=== PATIENT | female | born 1965 | race Caucasian/White ===

== ENCOUNTER 2016-11-17 17:01 | Emergency (ER) | payer BC, OTHER ==
[2016-11-17] MEDS ORDERED: SODIUM CHLORIDE 0.9% 1,000 ML IV ONE ×2 (17:38→17:44)
[2016-11-17] MEDS ORDERED: ONDANSETRON 4 MG/2 ML VIAL IVP STA (17:38)
[2016-11-17] MEDS ORDERED: LOPERAMIDE 2 MG CAPSULE PO STA (17:39)
[2016-11-17] MEDS ORDERED: LOPERAMIDE 2 MG CAPSULE PO ONE (17:44)
[2016-11-17] MEDS ORDERED: ONDANSETRON 4 MG/2 ML VIAL ONE (17:44)
--- NOTE | 2016-11-17 17:46 | ED Physician Documentation ---
PD HPI NVD - Stated complaint Stated Complaint: VOMITTING XS 5 DAYS - Chief complaint Chief Complaint: Abd Pain - History obtained from History obtained from: Patient - History of Present Illness Timing - onset: Other (50-year-old woman on a number of medications for weight loss, also a history of it deflated lap band. The last 5 days she's had vomiting and diarrhea and stomach cramps. It started on Monday and she had for couple days and then got better but then got worse again. There is no associated fever, recent travel, sick contact.) Review of Systems Constitutional: denies: Fever, Chills Nose: denies: Rhinorrhea / runny nose, Congestion Cardiac: denies: Chest pain / pressure, Palpitations Respiratory: denies: Dyspnea, Cough GI: reports: Nausea, Vomiting, Diarrhea. denies: Abdominal Pain, Abdominal Swelling, Constipation PD PAST MEDICAL HISTORY - Present Medications Home Medications: Ambulatory Orders Medication Instructions Recorded Confirmed Acarbose 1 tab PO DAILY 11/17/16 11/17/16 Levothyroxine [Synthroid] 1 tab PO DAILY 11/17/16 11/17/16 Liraglutide [Victoza 2-Dav] 1 applic SQ .FREQ 11/17/16 11/17/16 Lisinopril 1 tab PO DAILY 11/17/16 11/17/16 Miglitol 100 mg PO BID 11/17/16 11/17/16 Naltrexone HCl 1 tab PO DAILY 11/17/16 11/17/16 Ondansetron HCl [Zofran] 4 mg PO Q6H PRN #10 tablet 11/17/16 Promethazine [Phenergan] 25 - 50 mg PO Q6H PRN #15 tab 11/17/16 Sodium Bicarbonate 1 tab PO DAILY 11/17/16 11/17/16 Zonisamide 1 tab PO .FREQ 11/17/16 11/17/16 - Allergies Allergies/Adverse Reactions: Allergies Allergy/AdvReac Type Severity Reaction Status Date / Time No Known Drug Allergies Allergy Verified 11/17/16 17:09 PD ED PE NORMAL - Vitals Vital signs reviewed: Yes - General General: Alert and oriented X 3, No acute distress - HEENT HEENT: PERRL, EOMI, Moist mucous membranes, Pharynx benign - Cardiac Cardiac: RRR, No murmur - Respiratory Respiratory: No respiratory distress, Clear bilaterally - Abdomen Abdomen: Normal bowel sounds, Soft, Non tender - Extremities Extremities: No deformity, No tenderness to palpate, No edema, No calf tenderness / cord - Neuro Neuro: Alert and oriented X 3, Normal speech - Psych Psych: Normal mood, Normal affect Results - Vitals Vitals: Vital Signs - 24 hr 11/17/16 11/17/16 11/17/16 17:03 18:53 18:54 Temperature 36.7 C 37.9 C H Heart Rate 97 88 Respiratory 17 18 Rate Blood Pressure 170/98 H 192/78 H O2 Saturation 100 100 Oxygen O2 Source Room air - Labs Labs: Laboratory Tests 11/17/16 11/17/16 11/17/16 17:38 17:38 18:50 WBC 15.0 H RBC 4.51 Hgb 14.6 Hct 41.9 MCV 92.9 MCH 32.4 H MCHC 34.9 RDW 12.9 Plt Count 251 MPV 8.9 Neut # 12.4 H Lymph # 1.4 L [place] # 1.1 H Eos # 0.0 Baso # 0.0 Absolute Nucleated RBC 0.00 Nucleated RBCs 0.0 Sodium 135 Potassium 3.2 L Chloride 102 Carbon Dioxide 23 Anion Gap 10.0 BUN 23 H Creatinine 1.3 H Estimated GFR (MDRD) 43 L Glucose 146 H Calcium 8.8 Total Bilirubin 0.9 AST 24 ALT 33 Alkaline Phosphatase 52 Total Protein 7.2 Albumin 4.4 Globulin 2.8 Albumin/Globulin Ratio 1.6 Lipase 26 Urine Color YELLOW Urine Clarity CLEAR Urine pH 6.5 Ur Specific [place] 1.020 Urine Protein TRACE Urine Glucose (UA) NEGATIVE Urine Ketones 40 H Urine Occult Blood SMALL H Urine Nitrite NEGATIVE Urine Bilirubin NEGATIVE Urine Urobilinogen 0.2 (NORMAL) Ur Leukocyte Esterase NEGATIVE Urine RBC 0-5 Urine WBC 4-5 Ur Squamous Epith Cells MANY Squamous H Urine Bacteria None Seen Ur Microscopic Review INDICATED Urine Culture Comments NOT INDICATED - Rads (name of study) CT A/P Radiology: EMP read contemporaneously (1 mm left UVJ stone, lab band, fatty liver, diverticulosis) PD MEDICAL DECISION MAKING - ED course ED course: 50-year-old woman presents with what sounds like a GI illness but fairly long- standing. Initial workup didn't demonstrate a fair leukocytosis it was sent for CT which surprisingly showed a small left UVJ stone, her urinalysis was without evidence of infection. She declined pain medication and felt much better after antiemetics. Departure - Departure Disposition: 01 Home, Self Care Clinical Impression: Renal colic Vomiting Qualifiers: Vomiting type: unspecified Vomiting Intractability: non-intractable Nausea presence: with nausea Qualified Code(s): R11.2 - Nausea with vomiting, unspecified Condition: Good Record reviewed to determine appropriate education?: Yes Instructions: ED Stone Renal W Colic, ED Nausea Vomiting Prescriptions: Promethazine [Phenergan] 25 - 50 mg PO Q6H PRN #15 tab PRN Reason: Nausea / Vomiting Ondansetron HCl [Zofran] 4 mg PO Q6H PRN #10 tablet PRN Reason: Nausea / Vomiting Comments: Call your doctor to arrange a follow up appointment. Make the next available appointment. In the interim return anytime if worse or if new symptoms develop. Your blood pressure was elevated today on check in to the emergency department. This does not mean that you have hypertension, it is a common phenomenon to check into the emergency department and have elevated blood pressure. I recommend that you see your primary care physician within the week to have it rechecked when you're feeling better. Forms: Activity restrictions
[2016-11-17 17:55] LABS: BASOPHILS % (AUTO) 0.2 %; HCT - HEMATOCRIT 41.9 % (37.0-47.0); HGB - HEMOGLOBIN 14.6 g/dL (12.0-16.0); LYMPHOCYTES # (AUTO) 1.4 10^3/uL (1.5-3.5); LYMPHOCYTES % (AUTO) 9.6 %; MEAN CORPUSCULAR HEMOGLOBIN 32.4 pg (27.0-31.0); MEAN CORPUSCULAR HGB CONC 34.9 g/dL (32.0-36.0); MEAN CORPUSCULAR VOLUME 92.9 fL (81.0-99.0); MEAN PLATELET VOLUME 8.9 fL (7.9-10.8); MONOCYTES # (AUTO) 1.1 10^3/uL (0.0-1.0); MONOCYTES % (AUTO) 7.6 %; NEUTROPHILS # (AUTO) 12.4 10^3/uL (1.5-6.6); NEUTROPHILS % (AUTO) 82.6 %; RED BLOOD COUNT 4.51 10^6/uL (4.20-5.40); RED CELL DISTRIBUTION WIDTH 12.9 % (12.0-15.0)
[2016-11-17 18:06] LABS: ALBUMIN/GLOBULIN RATIO 1.6 (1.0-2.2); BILIRUBIN,TOTAL 0.9 mg/dL (0.2-1.0); CALCIUM 8.8 mg/dL (8.5-10.3); CREATININE 1.3 mg/dL (0.4-1.0); POTASSIUM 3.2 mmol/L (3.5-5.0); TOTAL PROTEIN 7.2 g/dL (6.7-8.2)
[2016-11-17] MEDS ORDERED: PROMETHAZINE INJ 25 MG in SODIUM CHLORIDE 0.9% 50 ML IV STA (18:17)
[2016-11-17] MEDS ORDERED: PROMETHAZINE 25 MG/1 ML VIAL ONE (18:18)
[2016-11-17] MEDS ORDERED: IOPAMIDOL-300 100 ML VIAL IVP ONE (18:43)
[2016-11-17] MEDS ORDERED: METOCLOPRAMIDE 10 MG/2 ML VIAL IVP STA (18:51)
[2016-11-17] MEDS ORDERED: METOCLOPRAMIDE 10 MG/2 ML VIAL ONE (18:55)
[2016-11-17 18:56] LABS: PH,URINE 6.5 PH (5.0-7.5)
[2016-11-17 18:58] LABS: UA w/ MICROSCOPIC CHARGE YES
[2016-11-17 19:01] LABS: BILIRUBIN,URINE NEGATIVE (NEGATIVE)
[2016-11-17 19:04] LABS: UR CULTURE IF IND NOT INDICATED
--- NOTE | 2016-11-17 19:33 | CT Preliminary Report ---
Exam: CT Abdomen/Pelvis W/ IMPRESSION: 1. Mild left hydronephrosis with an obstructing 1 mm left ureteral stone at the ureterovesicular junc tion. Prominent inflammatory fat stranding and free fluid surrounding the left kidney may be secondar y to the ureteral stone although with a history of leukocytosis, renal infection would be part of the differential diagnosis. No discrete abscess seen. 2. Status post gastric lap band. 3. Fatty infiltration of the liver. 4. Colonic diverticulosis with mild distention of the transverse colon with abrupt decompression at t he splenic flexure. No discrete mass is seen and this is probably physiologic in this patient in the supine position although if not recently performed, screening colonoscopy could evaluate this area. [facility] SITE ID: [id number]
--- NOTE | 2016-11-17 19:36 | CT Report ---
EXAM: CT ABDOMEN AND PELVIS EXAM DATE: 11/17/2016 06:50 PM. CLINICAL HISTORY: Abdominal pain and leukocytosis. COMPARISONS: None. TECHNIQUE: Routine helical CT imaging was performed through the abdomen and pelvis. IV contrast: 100 cc Isovue-300. Enteric contrast: No. Reconstructions: Coronal and sagittal. In accordance with CT protocol optimization, one or more of the following dose reduction techniques w ere utilized for this exam: automated exposure control, adjustment of mA and/or KV based on patient s ize, or use of iterative reconstructive technique. FINDINGS: Lung Bases: Unremarkable. Liver: Decreased density of the liver diffusely consistent with fatty infiltration without focal lesi on. Gallbladder/Bile Ducts: Unremarkable. Spleen: Normal. Pancreas: Normal. Adrenal Glands: Normal. Kidneys: Renal enhancement is normal without hydronephrosis. There is a delayed nephrogram on the left with prominent inflammatory fat stranding and trace free fl uid surrounding the left kidney. Note is made of a lateral cyst with some calcification at the margin measuring 1.5 cm. There is mild left hydronephrosis with a 1 mm obstructing stone at the ureterovesi cular junction (3, 88). Peritoneal Cavity/Bowel: The patient is status post gastric lap band. There is upper normal diameter of the transverse colon with abrupt decompression at the level of the splenic flexure. Note is made o f underlying colonic diverticular disease. Pelvic Organs: Uterus is anteverted with the patient status post bilateral Essure. Vasculature: No aneurysms or other significant abnormality. Bones: No significant abnormality. Other: None. IMPRESSION: 1. Mild left hydronephrosis with an obstructing 1 mm left ureteral stone at the ureterovesicular junc tion. Prominent inflammatory fat stranding and free fluid surrounding the left kidney may be secondar y to the ureteral stone although with a history of leukocytosis, renal infection would be part of the differential diagnosis. No discrete abscess seen. 2. Status post gastric lap band. 3. Fatty infiltration of the liver. 4. Colonic diverticulosis with mild distention of the transverse colon with abrupt decompression at t he splenic flexure. No discrete mass is seen and this is probably physiologic in this patient in the supine position although if not recently performed, screening colonoscopy could evaluate this area. [facility] Referring Provider Line: [phone] SITE ID: [id number]
[2016-11-17 19:50] VITALS: BP 141/79
== END 2016-11-17 19:51 | disposition home or self-care (01) ==
LOC: ED 17:01
DX: N13.2 Hydronephrosis with renal and ureteral calculous obstruction (principal); Z98.84 Bariatric surgery status; R11.2 Nausea with vomiting, unspecified; R03.0 Elevated blood-pressure reading, without diagnosis of hypertension
CPT/HCPCS: 36415; 74177; 80053; 81001; 83690; 85025; 96365; 96375; 99284; A9270; Q9967; 81003; 87086

== ENCOUNTER 2017-01-02 11:12 | Outpatient (CLI) | payer OTHER | END 2017-01-02 11:13 | disposition home or self-care (01) | LOC: SC 11:12 | PROVIDERS: ATTEND Nurse Practitioner Family | DX: G47.33 Obstructive sleep apnea (adult) (pediatric) (principal) | CPT/HCPCS: 99212; 99214 ==

== ENCOUNTER 2017-02-11 11:24 | Outpatient (CLI) | payer OTHER ==
--- NOTE | 2017-02-11 15:34 | Ultrasound Report ---
EXAM: ABDOMEN ULTRASOUND LIMITED EXAM DATE: 02/11/2017 12:03 PM. CLINICAL HISTORY: ABDOMINAL WALL HERNIA. COMPARISON: None. TECHNIQUE: Real-time scanning was performed with static images obtained. FINDINGS/IMPRESSIO)N: Targeted sonographic evaluation of the right hemiabdomen (area of reported palpable concern). The abdominal wall appears intact without herniation. No soft tissue mass identified. No solid or cystic masses. Peristalsing bowel is identified. IMPRESSION: No sonographic evidence for abdominal wall hernia. [facility] Referring Provider Line: [phone] SITE ID: [id number]
== END 2017-02-11 11:25 | disposition home or self-care (01) ==
LOC: DI 11:24
PROVIDERS: ATTEND Family Medicine
DX: K43.9 Ventral hernia without obstruction or gangrene (principal)
CPT/HCPCS: 76705

== ENCOUNTER 2017-02-16 15:26 | Outpatient (CLI) | payer OTHER ==
--- NOTE | 2017-02-20 20:13 | Mammography Report ---
DIGITAL BILATERAL SCREENING MAMMOGRAPHY: 02/16/2017 COMPARISON: 01/21/2016, 09/19/2014, 08/13/2009, 08/12/2008. Bilateral digital CC and MLO projections are obtained. FINDINGS: There are scattered fibroglandular densities. There is a small nodular density in the posterior third of the right upper-outer quadrant not definitely present on preceding studies. Suggest additional evaluation by spot compression views and ultrasound as needed. Otherwise no dominant mass, architectural distortion, skin thickening, or significant new finding compared to the prior study. Benign calcifications are seen in both breasts. IMPRESSION: NEGATIVE LEFT BREAST. NEEDS ADDITIONAL EVALUATION RIGHT BREAST. BIRADS CATEGORY: 0, INCOMPLETE EVALUATION. STANDARD QUALIFYING STATEMENTS 1. This examination was reviewed with the aid of Computed-Aided Detection (CAD) . 2. A negative or benign imaging report should not delay biopsy if clinically suspicious findings are present. Consider surgical consultation if warranted. More than 5% of cancers are not identified by imaging. 3. Dense breasts may obscure an underlying neoplasm. JOB #: [id number] EXT JOB #: [id number] JAISON
== END 2017-02-16 15:27 | disposition home or self-care (01) ==
LOC: DI.N 15:26
PROVIDERS: ATTEND Family Medicine
DX: Z12.31 Encounter for screening mammogram for malignant neoplasm of breast (principal); R92.8 Other abnormal and inconclusive findings on diagnostic imaging of breast
CPT/HCPCS: 77067

== ENCOUNTER 2017-03-30 14:00 | Outpatient (CLI) | payer OTHER ==
--- NOTE | 2017-03-31 16:02 | Mammography Report ---
RIGHT BREAST DIGITAL DIAGNOSTIC MAMMOGRAM AND RIGHT BREAST ULTRASOUND: 2016 COMPARISON STUDY: Screening mammogram 02/16/2017. INDICATION: Small mass upper-outer right breast on screening mammogram. MAMMOGRAM TECHNIQUE: Spot compression views of the right upper-outer quadrant are correlated with screening mammogram of 02/16/2017. FINDINGS There are scattered fibroglandular densities. Again seen with spot compression is a small mass of the right upper-outer breast approximately 10:30-position posterior breast, far from the nipple. It appears to contain a small fatty notch, most consistent with an intramammary lymph node. No dominant mass, architectural distortion, or concerning cluster of microcalcifications is seen in other regards. ULTRASOUND Focused sonography of the right upper-outer quadrant, 10:30 o'clock, approaching the axilla shows no evidence of mass or discrete lymph node. No other sonographic abnormalities. IMPRESSION: BIRADS CATEGORY 2 BENIGN FINDINGS. FAVOR AN INTRAMAMMARY LYMPH NODE. RECOMMEND ANNUAL SCREENING MAMMOGRAPHY. JAISON
== END 2017-03-30 14:01 | disposition home or self-care (01) ==
LOC: DI 14:00
PROVIDERS: ATTEND Family Medicine
DX: N63.11 Unspecified lump in the right breast, upper outer quadrant (principal)
CPT/HCPCS: 76642

== ENCOUNTER 2017-12-28 09:56 | Outpatient (CLI) | payer BC | END 2017-12-28 09:57 | disposition home or self-care (01) | LOC: SC 09:56 | PROVIDERS: ATTEND Nurse Practitioner Family | DX: G47.33 Obstructive sleep apnea (adult) (pediatric) (principal) | CPT/HCPCS: 99212; 99213 ==

== ENCOUNTER 2018-06-26 14:36 | Outpatient (CLI) | payer BC ==
[2018-06-26] MEDS ORDERED: IOVERSOL 320 50 ML VIAL ONE (14:54)
[2018-06-26] MEDS ORDERED: IOVERSOL 320 100 ML VIAL IVP ONE ×2 (14:54→16:17)
[2018-06-26 15:08] LABS: CREATININE 0.9 mg/dL (0.4-1.0)
[2018-06-26] MEDS ORDERED: IOVERSOL 320 50 ML VIAL PO ONE (16:17)
--- NOTE | 2018-06-26 16:26 | CT Report ---
Reason: NONINFECTIVE GASTROENTERITIS AND COLITIS. Procedure Date: 06/26/2018 Accession Number: [id number] / [id number] Procedure: CT - Abdomen/Pelvis W/ CPT Code: FULL RESULT: EXAM: CT ABDOMEN AND PELVIS EXAM DATE: 06/26/2018 03:47 PM. CLINICAL HISTORY: Noninfective gastroenteritis and colitis. COMPARISONS: Abdomen/pelvis with contrast 11/17/2016 6:36 PM. TECHNIQUE: Routine helical CT imaging was performed through the abdomen and pelvis. IV contrast: Optiray-320 90 mL. Enteric contrast: No. Reconstructions: Coronal and sagittal. In accordance with CT protocol optimization, one or more of the following dose reduction techniques were utilized for this exam: automated exposure control, adjustment of mA and/or KV based on patient size, or use of iterative reconstructive technique. FINDINGS: Lung Bases: Unremarkable. Liver: Normal. No masses. Gallbladder/Bile Ducts: Unremarkable. Spleen: Normal. Pancreas: Normal. Adrenal Glands: Normal. Kidneys: There is a 1.6 cm left renal calculus which is focally obstructing the single calyx. A smaller 5 mm upper pole calculus is also seen in the left kidney. The remainder of the kidney demonstrates no la hydronephrosis but there is mild periureteral fat stranding and a 5 mm calculus at the left ureterovesicular junction. Right kidney is unremarkable. Peritoneal Cavity/Bowel: In the region of the proximal duodenum is a 3.2 x 1.9 cm fluid and gas filled saccular structure with an appearance most suggestive of duodenal diverticulum. A contained proximal perforation/impending perforation of a possible duodenal ulcer is difficult to exclude in the current clinical scenario though felt significantly less likely. The descending and sigmoid colon are decompressed. No free fluid, free air or adenopathy. No masses or acute inflammatory process. The appendix is not seen. There is no inflammation in the pericecal region. Pelvic Organs: Essure device is in place. The bladder and visualized pelvic organs are within normal limits. Vasculature: No aneurysms or other significant abnormality. Bones: No significant abnormality. Other: None. IMPRESSION: Left UVJ calculus, 5 mm. Decompressed colon which can be seen in the setting of diarrhea/colitis. Question proximal duodenal diverticulum, usually of no clinical significance. A contained proximal perforation/impending perforation of a possible duodenal ulcer is difficult to exclude in the current clinical scenario though felt significantly less likely. No overt ischemic or inflammatory changes of the colon. 1.6 cm calculus of the left kidney as described. [facility] The call report notification system was initiated by Dr. Connor Ramirez at 04:25 PM hrs on 06/26/2018. The above findings of the distal left UVJ stone were discussed with Dr Hubbard by Dr. Connor Ramirez at 04:27 PM hrs on 06/26/2018.
== END 2018-06-26 14:37 | disposition home or self-care (01) ==
LOC: LAB 14:36 → DI 14:37
PROVIDERS: ATTEND Specialist
DX: N20.2 Calculus of kidney with calculus of ureter (principal); K52.9 Noninfective gastroenteritis and colitis, unspecified; N12 Tubulo-interstitial nephritis, not specified as acute or chronic
CPT/HCPCS: 36415; 74177; 82565; Q9967

== ENCOUNTER 2018-12-10 15:12 | Outpatient (CLI) | payer BC | END 2018-12-10 15:13 | disposition home or self-care (01) | LOC: SC 15:12 | PROVIDERS: ATTEND Nurse Practitioner Family | DX: G47.33 Obstructive sleep apnea (adult) (pediatric) (principal) | CPT/HCPCS: 99212; 99214 ==

== ENCOUNTER 2019-01-08 05:07 | Emergency (ER) | payer BC ==
--- NOTE | 2019-01-08 05:14 | ED Physician Documentation ---
PD HPI ABD PAIN - Stated complaint Stated Complaint: ABD PX/BK PX/COLD SWEAT - Chief complaint Chief Complaint: Abd Pain - History obtained from History obtained from: Patient - History of Present Illness Timing - onset: How many days ago (2) Timing - duration: Days (2 days of pain (started Monday evening)) Timing - details: Abrupt onset, Still present, Waxing and waning Quality: Cramping, Aching, Pain Location: Suprapubic Radiation: Left flank, Right flank Improved by: Vomiting. No: Eating Worsened by: Palpation. No: Eating, Moving, Breathing Associated symptoms: Nausea, Vomiting, Loss of appetite. No: Fever, Diarrhea, Constipation, Dysuria, Vaginal bleeding, Vaginal dc Similar symptoms before: Diagnosis (kidney stone this past June.) Recently seen: Not recently seen Review of Systems Constitutional: reports: Myalgias. denies: Fever, Chills Nose: denies: Rhinorrhea / runny nose, Congestion Throat: denies: Sore throat Cardiac: denies: Chest pain / pressure Respiratory: denies: Cough GI: reports: Abdominal Pain, Nausea, Vomiting. denies: Abdominal Swelling, Constipation, Diarrhea Skin: denies: Rash, Lesions Musculoskeletal: reports: Back pain. denies: Neck pain Neurologic: reports: Generalized weakness. denies: Focal weakness, Numbness PD PAST MEDICAL HISTORY - Past Medical History Cardiovascular: Hypertension Respiratory: None Neuro: None : Kidney stones (hadpassed 5 mm one in Jun. CT at the time showed 5 mm and also 16 mm stones in kidneys. ) - Past Surgical History Past Surgical History: No - Present Medications Home Medications: Ambulatory Orders Medication Instructions Recorded Confirmed Acarbose 1 tab PO DAILY 11/17/16 11/17/16 Levothyroxine [Synthroid] 1 tab PO DAILY 11/17/16 11/17/16 Lisinopril 1 tab PO DAILY 11/17/16 11/17/16 Miglitol 100 mg PO BID 11/17/16 11/17/16 Sodium Bicarbonate 1 tab PO DAILY 11/17/16 11/17/16 Zonisamide 1 tab PO .FREQ 11/17/16 11/17/16 Hydrocodone/Acetaminophen [[place] 1 each PO Q6H PRN #15 tablet 01/08/19 5-325 Tablet] Naproxen 375 mg PO BID #20 tablet 01/08/19 Ondansetron Odt [Zofran] 4 mg TL Q6H PRN #10 tablet 01/08/19 - Allergies Allergies/Adverse Reactions: Allergies Allergy/AdvReac Type Severity Reaction Status Date / Time No Known Drug Allergies Allergy Verified 01/08/19 05:13 - Social History Does the pt smoke?: No Smoking Status: Never smoker Does the pt drink ETOH?: Yes Does the pt have substance abuse?: No - POLST Patient has POLST: No PD ED PE NORMAL - Vitals Vital signs reviewed: Yes - General General: Alert and oriented X 3, No acute distress, Well developed/nourished - HEENT HEENT: Pharynx benign - Neck Neck: Supple, no meningeal sign, No adenopathy - Cardiac Cardiac: RRR, No murmur - Respiratory Respiratory: Clear bilaterally - Abdomen Abdomen: Normal bowel sounds, Soft, Non distended, No organomegaly, Other (tender in lower abd suprapubic and left side mainly. Has mild percussion tenderness lower abd midline. No CVA tenderness as well) - Female Female : Deferred - Rectal Rectal: Deferred - Back Back: No CVA TTP - Derm Derm: Normal color, Warm and dry, No rash - Extremities Extremities: No tenderness to palpate, Normal ROM s pain, No edema, No calf tenderness / cord - Neuro Neuro: Alert and oriented X 3, No motor deficit, Normal speech Results - Vitals Vitals: Vital Signs - 24 hr 01/08/19 01/08/19 01/08/19 05:10 05:15 06:13 Temperature 37.1 C Heart Rate 89 93 Respiratory 18 16 Rate Blood Pressure 174/93 H 159/94 H 148/78 H O2 Saturation 100 97 Oxygen O2 Source Room air - Labs Labs: Laboratory Tests 01/08/19 01/08/19 01/08/19 05:30 05:52 05:52 WBC 9.2 RBC 4.03 L Hgb 13.3 Hct 39.6 MCV 98.3 MCH 33.0 H MCHC 33.6 RDW 12.5 Plt Count 229 MPV 10.8 Neut # (Auto) 7.5 H Lymph # (Auto) 1.2 L [place] # (Auto) 0.3 Eos # (Auto) 0.0 Baso # (Auto) 0.1 Absolute Nucleated RBC 0.00 Nucleated RBC % 0.0 Sodium 139 Potassium 3.7 Chloride 108 Carbon Dioxide 21 Anion Gap 10.0 BUN 20 Creatinine 1.0 Estimated GFR (MDRD) 58 L Glucose 132 H Calcium 8.6 Total Bilirubin 0.5 AST 14 ALT 19 Alkaline Phosphatase 72 Total Protein 6.7 Albumin 3.9 Globulin 2.8 Albumin/Globulin Ratio 1.4 Lipase 26 Urine Color YELLOW Urine Clarity SL. CLOUDY Urine pH 6.5 Ur Specific [place] 1.015 Urine Protein TRACE Urine Glucose (UA) NEGATIVE Urine Ketones TRACE Urine Occult Blood NEGATIVE Urine Nitrite NEGATIVE Urine Bilirubin NEGATIVE Urine Urobilinogen 0.2 (NORMAL) Ur Leukocyte Esterase SMALL H Urine RBC None Seen Urine WBC 0-3 Ur Squamous Epith Cells MOD Squamous H Urine Crystals 11-25 Ca Oxalate Urine Bacteria Rare Ur Microscopic Review INDICATED Urine Culture Comments NOT INDICATED - Rads (name of study) KUB CT Radiology: Prelim report reviewed, See rad report (No acute process to explain symptoms) PD MEDICAL DECISION MAKING - ED course Complexity details: re-evaluated patient (Her symptoms are improved but still having pain in the lower abdomen to the back. Will get CT scan to better evaluate.), considered differential (Consider urinary tract such as stones or Bo. Consider enteral process such as viral illness or colitis. She does not have focal tenderness per se that would seem consistent with appendicitis. Diverticulitis could be a possibility. Will get labs and urine test initially. We will give her IV fluids and medications.), d/w patient Departure - Departure Disposition: 01 Home, Self Care Clinical Impression: Lower abdominal pain Nausea and vomiting Qualifiers: Vomiting type: unspecified Vomiting Intractability: non-intractable Qualified Code(s): R11.2 - Nausea with vomiting, unspecified Condition: Stable Record reviewed to determine appropriate education?: Yes Instructions: ED Nausea Vomiting Follow-Up: Ivory Russell MD [Primary Care Provider] - Prescriptions: Hydrocodone/Acetaminophen [[place] 5-325 Tablet] 1 each PO Q6H PRN #15 tablet PRN Reason: Pain Naproxen 375 mg PO BID #20 tablet Ondansetron Odt [Zofran] 4 mg TL Q6H PRN #10 tablet PRN Reason: Nausea / Vomiting Comments: There is no obvious cause of your symptoms on your urine test blood count and blood tests nor the CT scan. I would presume therefore you are having some general intestinal irritation, as well as the stomach, given your nausea vomiting and stomach pains. This commonly can be a viral type illness that lasts for a few days. However this is just a supposition and we can treat the symptoms with nausea medicine and anti-inflammatories and medicine for pain. However if the symptoms persist more than another day or 2 or if you have worsening symptoms or localized pain, high fevers, persistent vomiting, bloody stool, other concerns then certainly recheck with your primary care or back in the ER.
[2019-01-08] MEDS ORDERED: SODIUM CHLORIDE 0.9% 1,000 ML IV ONE (05:22)
[2019-01-08] MEDS ORDERED: ONDANSETRON 4 MG/2 ML VIAL IVP STA (05:23)
[2019-01-08] MEDS ORDERED: MORPHINE 10 MG/ML VIAL IVP STA (05:23)
[2019-01-08] MEDS ORDERED: KETOROLAC 30 MG/ML VIAL IVP STA (05:23)
[2019-01-08 05:55] LABS: BILIRUBIN,URINE NEGATIVE (NEGATIVE); GLUCOSE, URINE (UA) NEGATIVE (NEGATIVE); KETONES,URINE (UA) TRACE mg/dL (NEGATIVE); LEUKOCYTE ESTERASE, URINE SMALL (NEGATIVE); NITRITE,URINE NEGATIVE (NEGATIVE); OCCULT BLOOD,URINE NEGATIVE (NEGATIVE); PH,URINE 6.5 PH (5.0-7.5); PROTEIN,URINE TRACE mg/dL (NEGATIVE); UROBILINOGEN,URINE 0.2 (NORMAL) E.U./dL (NORMAL)
[2019-01-08 06:00] LABS: BASOPHILS # (AUTO) 0.1 10^3/uL (0.0-0.1); BASOPHILS % (AUTO) 0.5 %; EOSINOPHILS % (AUTO) 0.3 %; HGB - HEMOGLOBIN 13.3 g/dL (12.0-16.0); LYMPHOCYTES # (AUTO) 1.2 10^3/uL (1.5-3.5); LYMPHOCYTES % (AUTO) 13.1 %; MEAN CORPUSCULAR HGB CONC 33.6 g/dL (32.0-36.0); MEAN CORPUSCULAR VOLUME 98.3 fL (81.0-99.0); MEAN PLATELET VOLUME 10.8 fL (7.9-10.8); MONOCYTES # (AUTO) 0.3 10^3/uL (0.0-1.0); MONOCYTES % (AUTO) 3.6 %; NEUTROPHILS # (AUTO) 7.5 10^3/uL (1.5-6.6); NEUTROPHILS % (AUTO) 82.1 %; PLT - PLATELET COUNT 229 10^3/uL (130-450); RED BLOOD COUNT 4.03 10^6/uL (4.20-5.40); RED CELL DISTRIBUTION WIDTH 12.5 % (12.0-15.0); WHITE BLOOD COUNT 9.2 x10^3/uL (4.8-10.8)
[2019-01-08 06:01] LABS: CLARITY,URINE SL. CLOUDY (CLEAR)
[2019-01-08] MEDS ORDERED: PROCHLORPERAZINE 10 MG/2 ML VIAL IVP STA (06:04)
[2019-01-08 06:09] LABS: ALBUMIN 3.9 g/dL (3.2-5.5); ALBUMIN/GLOBULIN RATIO 1.4 (1.0-2.2); BILIRUBIN,TOTAL 0.5 mg/dL (0.2-1.0); CALCIUM 8.6 mg/dL (8.5-10.3); TOTAL PROTEIN 6.7 g/dL (6.7-8.2)
[2019-01-08 06:16] LABS: BACTERIA,URINE Rare /HPF (None Seen); CRYSTALS,URINE 11-25 Ca Oxalate /LPF; RBC,URINE None Seen /HPF (0-5); SQUAMOUS EPITHELIAL CELL,UR MOD Squamous (<= Few)
--- NOTE | 2019-01-08 06:53 | CT Report ---
Reason: lower abd to flank pain for couple days; both side Procedure Date: 01/08/2019 Accession Number: [id number] / [id number] Procedure: CT - Abdomen/Pelvis WO CPT Code: FULL RESULT: EXAM: CT ABDOMEN AND PELVIS (CT KUB) EXAM DATE: 01/08/2019 06:36 AM. CLINICAL HISTORY: Lower abd to flank pain for couple days; both side. COMPARISONS: ABDOMEN/PELVIS W/ 06/26/2018 3:47 PM. TECHNIQUE: Routine axial helical CT imaging was performed through the abdomen and pelvis without IV contrast. Reconstructions: Coronal and sagittal. In accordance with CT protocol optimization, one or more of the following dose reduction techniques were utilized for this exam: automated exposure control, adjustment of mA and/or KV based on patient size, or use of iterative reconstructive technique. FINDINGS: Lung Bases: Unremarkable. Right Kidney/Ureter: No stones, hydronephrosis, or hydroureter. No perinephric fat stranding. Left Kidney/Ureter: Resolution of previously seen hydronephrosis and distal ureteric calculus. Nonobstructing renal calculi and dystrophic calcification in the renal parenchyma. Other Solid Organs: Noncontrast images of the solid organs are grossly unremarkable. Gallbladder/Bile Ducts: Possible cholelithiasis. No CT evidence of acute cholecystitis or biliary dilatation. Peritoneal Cavity: No free fluid, free air or la adenopathy. Bowel is grossly unremarkable. Normal appendix. Pelvic Organs: Bilateral tubal occlusion devices. No pelvic adenopathy or free fluid. Vasculature: Unremarkable. Other: None. IMPRESSION: Nonobstructing left renal calculi. Resolution of left hydronephrosis previously seen left distal ureteric calculus. No evident etiology for patient's pain. [facility]
[2019-01-08 07:30] VITALS: BP 166/95
== END 2019-01-08 07:31 | disposition home or self-care (01) ==
LOC: ED 05:07
DX: R10.30 Lower abdominal pain, unspecified (principal); M54.9 Dorsalgia, unspecified; R11.2 Nausea with vomiting, unspecified; N20.0 Calculus of kidney; I10 Essential (primary) hypertension
CPT/HCPCS: 36415; 74176; 80053; 81001; 81003; 83690; 85025; 87086; 96361; 96374; 96375; 99284

== ENCOUNTER 2020-02-27 15:46 | Outpatient (CLI) | payer OTHER ==
[2020-02-27 16:28] VITALS: BP 120/80
--- NOTE | 2020-02-27 16:28 | SLEEP CARE CONSULTATION ---
Information from patient questionnaire entered by Ashely Benavidez. I have reviewed and concur with the information entered by Ashely Benavidez. This document represents the service I personally performed and the decisions made by me, Gris Henderson, RN, MSN, PA[employer]RO[employer] ACCOUNTING MANAGER. History of Present Illness Service Date and Time: 02/27/2020 1546 Previous diagnosis: Moderate, Obstructive Sleep Apnea-Hypopnea Syndrome AHI: 24.8 Reason for follow up: annual (Last seen 12/2018) Equipment type: CPAP Equipment obtained from: [employer] (this office was just notified that this DME no longer dispensing CPAP supplies) Mask style: Nasal Backup mask available: Yes (old mask ) Last cushion change: few months Prior sleep studies: Yes Year and Where: 2014 [facility] Sleep [facility] Type of Sleep Study: Polysomnography CPAP Compliance Data - Data Reviewed with Patient Average duration of nightly device use: 7 h 33 min Compliance rate %: 98.9 Current pressure setting (cmH2O): 7 Humidity settin Heated hose settin Average residual AHI: 2.8 Average large leak: 0 sec Subjective Patient concerns: denies: aerophagia, mask discomfort, air blowing in eyes, mask leak noise, condensation in mask/hose, nasal congestion, dry mouth, nose, throat, epistaxis, other Observed to snore while using device: No Current pressure setting perceived as: comfortable On therapy, patient: reports: sleeping better, awakening more refreshed, being more awake and alert during the day, more rested overall. denies: drowsiness while driving Initial [place] Sleepiness Scale score: 10 (in 2014) Current [place] Sleepiness Scale score: 3 Allergies and Home Medications Known drug allergies: No Home medication list reviewed: Yes (janumet and metformin replaced by combo pill ) Review of Systems Review of systems same as previous: Yes Physical Exam Blood Pressure: 120/80 Cuff size: long Heart Rate: 87 O2 Saturation: 98 Height: 5 ft 5 in Weight: 232 lb 6.4 oz Body Mass Index: 38.7 BMI Classification: Obese Impression and Plan 1. Obstructive Sleep Apnea-Hypopnea Syndrome, moderate, with good treatment compliance and good apnea control. On CPAP therapy, the patient has better sleep quality and is more rested overall. For patient supply concerns. Patient was notified that another DME can be used. I will have my improvement coordinator inform of DME options. A DWO prescription will then be made. Patient advised to contact this office if further supply problems.The patients CPAP is over 5 years old and of reasonable use. Thus, the CPAP will be updated. A DWO prescription will be made. Compliance guidelines for new device and follow up discussed. Patient has lost weight. Currently patients BMI is 38.2 obesity class . Obesity increases the risk of apnea, CPAP pressure requirements and overall health risks especially cardiovascular and diabetes. Thus patient is advised to continue to lose weight. She is working with a weight loss doctor an d glucose control. 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 She has lost about 50 pounds the past 5 years. The patient's CPAP pressure range should accommodate some weight loss. Patient does not want to change to autoCPAP at this time as current pressure comfortable. Symptoms to report for additional pressure adjustment discussed. Patient's apnea severity and rationale for treatment to reduce apnea, improve sleep quality and reduce cardiovascular and cerebrovascular events was reviewed. I also reviewed the benefit of consistent device use of CPAP for hypertension, diabetes, . * Continue CPAP pressure at 7 cmH2O * Update CPAP * Transfer to new DME * Notify me if snoring with mask or feeling that the pressure is too much or too little * Continue to lose weight * Call this office if any problems using CPAP * Return for follow up in 1 month after updated CPAP , or sooner if concerns arise Visit Type: In Office Time Spent with Patient (minutes): 20 Provider Statement: I spent 100% of the Face to Face Visit with the patient with greater than 50% spent counseling the patient and coordination of care.
== END 2020-02-27 15:47 | disposition home or self-care (01) ==
LOC: SC 15:46
PROVIDERS: ATTEND Nurse Practitioner Family
DX: G47.33 Obstructive sleep apnea (adult) (pediatric) (principal); E66.9 Obesity, unspecified; Z68.32 Body mass index [BMI] 32.0-32.9, adult
CPT/HCPCS: 99212; 99213

== ENCOUNTER 2020-03-09 08:00 | Outpatient (CLI) | payer OTHER | END 2020-03-09 23:59 | disposition home or self-care (01) | LOC: LAB.R 08:00 | PROVIDERS: ATTEND Nurse Practitioner Family | DX: R30.0 Dysuria (principal) | CPT/HCPCS: 87086 ==

== ENCOUNTER 2020-04-15 09:49 | Outpatient (CLI) | payer OTHER ==
--- NOTE | 2020-04-15 10:30 | SLEEP CARE CONSULTATION ---
Information from patient questionnaire entered by Bell Vazquez. I have reviewed and concur with the information entered by Bell Vazquez. This document represents the service I personally performed and the decisions made by me, Geeta Ceja ARNP. History of Present Illness Service Date and Time: 04/15/2020948 Previous diagnosis: Moderate, Obstructive Sleep Apnea-Hypopnea Syndrome AHI: 24.8 Reason for follow up: first compliance Equipment type: CPAP Equipment obtained from: [employer] (getting supplies as needed) Mask style: Nasal Backup mask available: Yes (other mask) Last cushion change: 3 weeks Prior sleep studies: Yes Year and Where: 2014 [facility] Sleep [facility] Type of Sleep Study: Polysomnography HPI additional information: LOLY DORMAN was diagnosed to have moderate, AHI 24.8, obstructive sleep apnea- hypopnea syndrome and returned today for CPAP therapy first compliance after device update follow-up. Sleep Study - Results Type of Sleep Study: Polysomnography Prior sleep studies: Yes Year and Where: 2014 [facility] CPAP Compliance Data - Data Reviewed with Patient Average duration of nightly device use: 7 hours 29 minutes Compliance rate %: 100 Current pressure setting (cmH2O): 7 Average residual AHI: 2.6 Central apnea: 0.0 Obstructive apnea: 2.4 Average large leak: 1.0 L/min Subjective Missed days of use due to: reports: illness Patient concerns: denies: aerophagia, mask discomfort, air blowing in eyes, mask leak noise, condensation in mask/hose, nasal congestion, dry mouth, nose, throat, epistaxis, other Observed to snore while using device: No Current pressure setting perceived as: comfortable On therapy, patient: reports: sleeping better, awakening more refreshed, being more awake and alert during the day, more rested overall. denies: drowsiness while driving Initial [place] Sleepiness Scale score: 10 (in 2015) Allergies and Home Medications Drug allergies reviewed: Yes (NKDA) Home medication list reviewed: Yes (no changes) Review of Systems Review of systems same as previous: Yes (no changes) Physical Exam Heart Rate: 87 O2 Saturation: 98 Height: 5 ft 5 in Weight: 234 lb Body Mass Index: 38.9 BMI Classification: Obese Impression and Plan 1. Obstructive Sleep Apnea-Hypopnea Syndrome, moderate, with excellent treatment compliance and good apnea control. On CPAP therapy, the patient has better sleep quality and is more rested overall. She is doing well with no complaints or concerns. Patient's apnea severity and rationale for treatment to reduce apnea, improve sleep quality and reduce cardiovascular and cerebrovascular events was reviewed. I also reviewed the benefit of consistent device use of CPAP for hypertension and diabetes. * Continue auto CPAP pressure at 7 cmH2O * Notify me if snoring with mask or feeling that the pressure is too much or too little * Continue to try to lose weight * Call this office if any problems using CPAP * Return for follow up in 1 year, or sooner if concerns arise Counseling Topics: Spare mask, Weight loss health impact Visit Type: In Office Time Spent with Patient (minutes): 16 Provider Statement: I spent 100% of the Face to Face Visit with the patient with greater than 50% spent counseling the patient and coordination of care.
== END 2020-04-15 09:50 | disposition home or self-care (01) ==
LOC: SC 09:49
PROVIDERS: ATTEND Nurse Practitioner Family
DX: G47.33 Obstructive sleep apnea (adult) (pediatric) (principal); E66.9 Obesity, unspecified; Z68.38 Body mass index [BMI] 38.0-38.9, adult
CPT/HCPCS: 99212; 99213

== ENCOUNTER 2022-04-21 15:28 | Outpatient (CLI) | payer OTHER ==
--- NOTE | 2022-04-27 10:06 | Mammography Report ---
BILATERAL DIGITAL SCREENING MAMMOGRAM 3D/2D: 04/21/2022 CLINICAL: Routine screening. Comparison is made to exams dated: 01/31/2020 mammogram, 10/24/2017 ultrasound, 10/24/2017 mammogram - , 03/30/2017 mammogram, 03/30/2017 ultrasound, and 02/16/2017 mammogram - [facility]. There are scattered areas of fibroglandular density in both breasts (category b / 25%-50% glandular t issue). There are benign calcifications in both breasts. No significant masses, calcifications, or other findings are seen in either breast. There has been no significant interval change. IMPRESSION: BENIGN There is no mammographic evidence of malignancy. A 1 year screening mammogram is recommended. Based on the Tyrer Cuzick model (a risk assessment model) the patients lifetime risk is 8.2% and her 10 year risk is 3.0%. According to the ACR, ACS, and NCCN guidelines, an annual breast MRI exam jeovanny g with mammogram is recommended if the patients lifetime risk is 20% or greater. This exam was interpreted at Station ID: [id number]. NOTE: For mammograms, a report in lay terms will be sent to the patient. Approximately 15% of breast malignancies will not be visualized mammographically. In the management of a palpable breast mass, a negative mammogram must not discourage biopsy of a clinically suspicious lesion. Electronically Signed By: Thaddeus Blake M.D. [email or web address]:04/27/2022 07:27:28 ACR BI-RADS Category 2: Benign Finding(s) 3342F PARENCHYMAL PATTERN: (A) - The breast(s) demonstrate(s) scattered fibroglandular densities. BI-RADS CATEGORY: (2) - 2 RECOMMENDATION: (ANNUAL) - Recommend routine annual screening mammography. [id number] 1 year screening LATERALITY: (B)
== END 2022-04-21 15:29 | disposition home or self-care (01) ==
LOC: DI.N 15:28
PROVIDERS: ATTEND Nurse Practitioner Family
DX: Z12.31 Encounter for screening mammogram for malignant neoplasm of breast (principal)

== ENCOUNTER 2022-04-26 15:21 | Outpatient (CLI) | payer OTHER ==
--- NOTE | 2022-04-26 16:03 | SLEEP CARE CONSULTATION ---
Information from patient questionnaire entered by Patti Sterling. I have reviewed and concur with the information entered by Patti Sterling. This document represents the service I personally performed and the decisions made by me, Geeta Ceja ARNP. History of Present Illness Service Date and Time: 04/26/2022 1521 Previous diagnosis: Moderate, Obstructive Sleep Apnea-Hypopnea Syndrome AHI: 24.8 Reason for follow up: annual (LAST SEEN 04/2020) Equipment type: CPAP (RESMED) Equipment obtained from: [facility] (getting supplies as needed) Mask style: Nasal Mask brand: Respironics (Dreamwear) Backup mask available: Yes (old mask) Last cushion change: 1 month Prior sleep studies: Yes Year and Where: 2014 [facility] Type of Sleep Study: Polysomnography HPI additional information: LOLY DORMAN was diagnosed to have moderate, AHI 24.8, obstructive sleep apnea- hypopnea syndrome and returned today for CPAP therapy annual follow-up. Sleep Study - Results Type of Sleep Study: Polysomnography Prior sleep studies: Yes Year and Where: 2014 [facility] CPAP Compliance Data - Data Reviewed with Patient Average duration of nightly device use: 7 hours 49 mins Compliance rate %: 100 (90/90 days used) Current pressure setting (cmH2O): 7 Average residual AHI: 2.4 Central apnea: 0.0 Obstructive apnea: 2.1 Subjective Patient concerns: denies: aerophagia, mask discomfort, air blowing in eyes, mask leak noise, condensation in mask/hose, nasal congestion, dry mouth, nose, throat, epistaxis Observed to snore while using device: No (occasional snore heard by ) Current pressure setting perceived as: comfortable On therapy, patient: reports: sleeping better, awakening more refreshed, being more awake and alert during the day, more rested overall. denies: drowsiness while driving Initial [place] Sleepiness Scale score: 10 (in 2014) Current [place] Sleepiness Scale score: 3 (04/26/22) Allergies and Home Medications Drug allergies reviewed: Yes (NKDA) Home medication list reviewed: Yes Allergy and home medication list: Medications: Acarbose Levothyroxine Lisinopril Miglitol Zonisamide Mounjaro Naltrexone Aspirin Rosuvastatin Bupropion Jentadueto Review of Systems Review of systems same as previous: Yes (no changes) Physical Exam Vital signs obtained and entered by: PATTI Short MA Blood Pressure: 128/70 (LEFT ARM) Cuff size: long Heart Rate: 93 O2 Saturation: 96 Height: 5 ft 5 in Weight: 227 lb 3.2 oz Weight change since last visit: 7 lb loss Body Mass Index: 37.8 BMI Classification: Obese Impression and Plan 1. Obstructive Sleep Apnea-Hypopnea Syndrome, moderate, with good treatment compliance and good apnea control. On CPAP therapy, the patient has better sleep quality and is more rested overall. Patient has significant improvement of their sleep apnea and are satisfied with current CPAP therapy. Patient denies problems with oral dryness, nasal congestion, epistaxis, skin irritation or aerophagia. Patient's apnea severity and rationale for treatment to reduce apnea, improve sleep quality and reduce cardiovascular and cerebrovascular events was reviewed. I also reviewed the benefit of consistent device use of CPAP for hypertension and diabetes. 2. Obesity, unspecified. Currently patients BMI is 37.8. She is working with weight loss doctor in [place] since 2014. Obesity increases the risk of apnea, CPAP pressure requirements and overall health risks especially cardiovascular and diabetes. Thus patient is advised to continue to try to lose weight. * Continue CPAP pressure at 7 cmH2O * Update supplies * Notify me if snoring with mask or feeling that the pressure is too much or too little * Continue to try to lose weight * Call this office if any problems using CPAP * Return for follow up in 1 year, or sooner if concerns arise Counseling Topics: Spare mask, Weight loss health impact Visit Type: In Office Time Spent with Patient (minutes): 21 Provider Statement: I spent 100% of the Face to Face Visit with the patient with greater than 50% spent counseling the patient and coordination of care.
[2022-04-26 16:12] VITALS: BP 128/70
== END 2022-04-26 15:22 | disposition home or self-care (01) ==
LOC: SC 15:21
PROVIDERS: ATTEND Nurse Practitioner Family
DX: G47.33 Obstructive sleep apnea (adult) (pediatric) (principal); E66.9 Obesity, unspecified; Z68.37 Body mass index [BMI] 37.0-37.9, adult
CPT/HCPCS: 99212; 99213

== ENCOUNTER 2023-03-07 16:45 | Outpatient (CLI) | payer OTHER | END 2023-03-07 17:00 | disposition home or self-care (01) | LOC: LAB.N 16:45 | PROVIDERS: ATTEND Registered Nurse | DX: R30.0 Dysuria (principal) | CPT/HCPCS: 87077; 87086; 87181 ==

== ENCOUNTER 2023-06-02 10:15 | Outpatient (CLI) | payer OTHER | END 2023-06-02 10:30 | disposition home or self-care (01) | LOC: LAB.N 10:15 | PROVIDERS: ATTEND Family Medicine | DX: R30.0 Dysuria (principal) | CPT/HCPCS: 87077; 87086; 87181 ==

== ENCOUNTER 2023-06-19 13:04 | Outpatient (CLI) | payer OTHER ==
--- NOTE | 2023-06-20 15:36 | Mammography Report ---
BILATERAL DIGITAL SCREENING MAMMOGRAM 3D/2D: 06/19/2023 CLINICAL: Routine screening. Comparison is made to exams dated: 04/21/2022 mammogram - [facility], 01/31/2020 ma mmogram, 10/24/2017 ultrasound, 10/24/[address] [facility], 03/30/2017 mammogram, and 017 ultrasound - [facility]. Both breasts are almost entirely fatty (category a/<25% glandular tissue). There are benign calcifications in both breasts. No significant masses, calcifications, or other findings are seen in either breast. There has been no significant interval change. IMPRESSION: BENIGN There is no mammographic evidence of malignancy. A 1 year screening mammogram is recommended. Based on the Tyrer Cuzick model (a risk assessment model) the patients lifetime risk is 6.3% and her 10 year risk is 2.4%. According to the ACR, ACS, and NCCN guidelines, an annual breast MRI exam along with mammogram is recommended if the patients lifetime risk is 20% or greater. This exam was interpreted at Station ID: [id number]. NOTE: For mammograms, a report in lay terms will be sent to the patient. Approximately 15% of breast malignancies will not be visualized mammographically. In the management of a palpable breast mass, a negative mammogram must not discourage biopsy of a clinically suspicious lesion. Electronically Signed By: Yanni [email or web address]:06/19/2023 16:00:52 ACR BI-RADS Category 2: Benign Finding(s) 3342F PARENCHYMAL PATTERN: (F) - The breast(s) demonstrate(s) diffuse fatty replacement. BI-RADS CATEGORY: (2) - 2 Mammogram [id number] 1 year screening LATERALITY: (B)
== END 2023-06-19 13:05 | disposition home or self-care (01) ==
LOC: DI.N 13:04
DX: Z12.31 Encounter for screening mammogram for malignant neoplasm of breast (principal)

== ENCOUNTER 2023-07-11 15:41 | Outpatient (CLI) | payer OTHER ==
--- NOTE | 2023-07-11 16:10 | Sleep Patient Instructions ---
Sleep Center Visit Summary - Patient Visit Information Reason for Visit: Annual visit - Patient Instructions Additional Instructions: You will continue with CPAP therapy with pressure changed to 8 cmH2O. A supply prescription will be updated with your DME. We encourage you to continue to try to lose weight. Please follow up with the sleep care office in 1 year. - Clinic Information Contact: [facility] [address] [place] [address] [email or web address] T: [phone]
--- NOTE | 2023-07-11 16:16 | SLEEP CARE CONSULTATION ---
Information from patient questionnaire entered by Patti Sterling. I have reviewed and concur with the information entered by Patti Sterling. This document represents the service I personally performed and the decisions made by , Geeta Ceja ARNP. History of Present Illness Service Date and Time: 07/11/2023 1541 Previous diagnosis: Moderate, Obstructive Sleep Apnea-Hypopnea Syndrome AHI: 24.8 Reason for follow up: annual (LAST SEEN 07/2022) Equipment type: CPAP (RESMED Airsense 10, s/u 03/2020) Equipment obtained from: [employer] (getting supplies as needed) Mask style: Nasal Mask brand: Respironics (Dreamwear) Backup mask available: Yes Last cushion change: 1 month Prior sleep studies: Yes Year and Where: 2014 [facility] Type of Sleep Study: Polysomnography HPI additional information: LOLY DORMAN was diagnosed to have moderate, AHI 24.8, obstructive sleep apnea- hypopnea syndrome and returned today for CPAP therapy annual follow-up. Sleep Study - Results Type of Sleep Study: Polysomnography Prior sleep studies: Yes Year and Where: 2014 [facility] CPAP Compliance Data - Data Reviewed with Patient Average duration of nightly device use: 7 HRS 31 MINS Compliance rate %: 99 (07/07/22-07/06/23; 362/365 days used) Current pressure setting (cmH2O): 7 Average residual AHI: 2.4 Central apnea: 0.1 Obstructive apnea: 1.8 Hypopnea: 0.5 Average large leak: 0 L/min Subjective Patient concerns: denies: aerophagia, mask discomfort, air blowing in eyes, mask leak noise, condensation in mask/hose, nasal congestion, dry mouth, nose, throat, epistaxis Observed to snore while using device: Yes Current pressure setting perceived as: comfortable On therapy, patient: reports: sleeping better, awakening more refreshed, being more awake and alert during the day, more rested overall. denies: drowsiness while driving Initial [place] Sleepiness Scale score: 10 (in 2014) Current [place] Sleepiness Scale score: 4 (07/11/23) Allergies and Home Medications Known drug allergies: No Drug allergies reviewed: Yes Home medication list reviewed: Yes (Gabapentin) Allergy and home medication list: Allergies No Known Drug Allergies Allergy (Verified 07/07/23 15:44) Review of Systems Review of systems same as previous: Yes (back surgery, Apr 03, 2023) Physical Exam Vital signs obtained and entered by: PATTI Short MA Blood Pressure: 132/75 (RIGHT ARM) Cuff size: regular Heart Rate: 90 O2 Saturation: 99 Height: 5 ft 5 in Weight: 248 lb Body Mass Index: 41.2 BMI Classification: Morbidly Obese Impression and Plan 1. Obstructive Sleep Apnea-Hypopnea Syndrome, moderate, with good treatment compliance and good apnea control. On CPAP therapy, the patient has better sleep quality and is more rested overall. Patient has significant improvement of their sleep apnea and is satisfied with current CPAP therapy. Patient states that her tells her she is snoring all the time. To resolve snore, the CPAP pressure will be changed to 8 cmH20. Patient advised to contact this office if pressure change uncomfortable or if pressure change does not resolve snore. Patient's apnea severity and rationale for treatment to reduce apnea, improve sleep quality and reduce cardiovascular and cerebrovascular events was reviewed. I also reviewed the benefit of consistent device use of CPAP for hypertension and diabetes. 2. Obesity, unspecified. Currently patients BMI is 41.2. Obesity increases the risk of apnea, CPAP pressure requirements and overall health risks especially cardiovascular and diabetes. Thus patient is advised to lose weight. * Change auto CPAP pressure to 8 cmH2O * Update supply prescription * Notify me if snoring with mask or feeling that the pressure is too much or too little * Attempt to lose weight * Call this office if any problems using CPAP * Return for follow up in 12 months, or sooner if concerns arise Adjust device pressure to (cmH2O): 8 cmH2O Counseling Topics: Spare mask, Weight loss health impact Prescriptions: Device supplies Follow up with Sleep Care in: 1 year Visit Type: In Office Time Spent with Patient (minutes): 20 Provider Statement: I spent 100% of the Face to Face Visit with the patient with greater than 50% spent counseling the patient and coordination of care.
[2023-07-11 16:18] VITALS: BP 132/75; O2SAT 99
== END 2023-07-11 15:42 | disposition home or self-care (01) ==
LOC: SC 15:41
PROVIDERS: ATTEND Nurse Practitioner Family
DX: G47.33 Obstructive sleep apnea (adult) (pediatric) (principal); E66.01 Morbid (severe) obesity due to excess calories; Z68.41 Body mass index [BMI] 40.0-44.9, adult
CPT/HCPCS: 99212; 99213

== ENCOUNTER 2024-01-02 08:00 | Outpatient (CLI) | payer OTHER ==
[2024-01-02 12:38] LABS: BASOPHILS # (AUTO) 0.1 10^3/uL (0.0-0.1); EOSINOPHILS # (AUTO) 0.2 10^3/uL (0.0-0.7); EOSINOPHILS % (AUTO) 2.5 %; HCT - HEMATOCRIT 39.8 % (37.0-47.0); LYMPHOCYTES # (AUTO) 1.8 10^3/uL (1.5-3.5); MEAN CORPUSCULAR HEMOGLOBIN 31.3 pg (27.0-31.0); MEAN CORPUSCULAR HGB CONC 32.7 g/dL (32.0-36.0); MEAN CORPUSCULAR VOLUME 95.9 fL (81.0-99.0); MEAN PLATELET VOLUME 11.9 fL (7.9-10.8); MONOCYTES # (AUTO) 0.4 10^3/uL (0.0-1.0); MONOCYTES % (AUTO) 7.4 %; NEUTROPHILS # (AUTO) 3.5 10^3/uL (1.5-6.6); NEUTROPHILS % (AUTO) 58.9 %; PLT - PLATELET COUNT 206 10^3/uL (130-450); RED BLOOD COUNT 4.15 10^6/uL (4.20-5.40); RED CELL DISTRIBUTION WIDTH 13.1 % (12.0-15.0); WHITE BLOOD COUNT 5.9 x10^3/uL (4.8-10.8)
[2024-01-02 12:54] LABS: ALBUMIN 4.3 g/dL (3.2-5.5); ALBUMIN/GLOBULIN RATIO 1.9 (1.0-2.2); ALKALINE PHOSPHATASE 84 IU/L (42-121); ALT ALANINE AMINOTRANSFERASE 16 IU/L (10-60); AST ASPARTATE AMINOTRANSFERASE 15 IU/L (10-42); BILIRUBIN,TOTAL 0.5 mg/dL (0.2-1.0); BUN - BLOOD UREA NITROGEN 26 mg/dL (6-20); CALCIUM 9.8 mg/dL (8.5-10.3); CARBON DIOXIDE - CO2 24 mmol/L (21-32); CHLORIDE 107 mmol/L (101-111); CHOL/HDL RATIO 2.8 (<4.4); CHOLESTEROL 121 mg/dL; CREATININE 1.3 mg/dL (0.6-1.3); GFR - MDRD 42 (>89); GLUCOSE 94 mg/dL (74-104); HDL CHOLESTEROL 43 mg/dL; LDL CHOLESTEROL,CALCULATED 55 mg/dL; LDL/HDL RATIO 1.3 (<4.4); POTASSIUM 3.9 mmol/L (3.5-4.5); SODIUM 138 mmol/L (135-145); TOTAL PROTEIN 6.6 g/dL (6.4-8.9); TRIGLYCERIDES 117 mg/dL; VLDL CHOLESTEROL 23 mg/dL
[2024-01-02 13:05] LABS: THYROID STIMULATING HORMONE 3.02 uIU/mL (0.34-5.60)
[2024-01-02 13:24] LABS: ESTIMATED AVERAGE GLUCOSE 111 mg/dL (70-100); HEMOGLOBIN A1c% 5.5 % (4.27-6.07)
== END 2024-01-02 23:59 | disposition home or self-care (01) ==
LOC: LAB.N 08:00
PROVIDERS: ATTEND Family Medicine
DX: Z00.00 Encounter for general adult medical examination without abnormal findings (principal); R30.0 Dysuria; E66.9 Obesity, unspecified
CPT/HCPCS: 36415; 80053; 80061; 83036; 83721; 84443; 85025; 87086

== ENCOUNTER 2024-01-09 08:19 | Outpatient (CLI) | payer OTHER ==
--- NOTE | 2024-01-09 12:21 | CT Report ---
PROCEDURE: Abdomen/Pelvis WO INDICATIONS: HEMATURIA TECHNIQUE: A CT scan of the abdomen and pelvis was performed without the use of intravenous contrast. Images we re recorded and evaluated at appropriate window settings. Reformats: coronal and sagittal. For radiat ion dose reduction, the following was used: automated exposure control, adjustment of mA and/or kV ac cording to patient size. COMPARISON: 01/08/2019 FINDINGS: Image quality: Diagnostic Lower chest: Lower lungs appear unremarkable. Scattered scarring. Mild nonspecific distal esophageal wall thickening. Heart size is normal where visualized. There are coronary calcifications. Liver: Solid organs are not well evaluated IV contrast. No contour deforming mass Gallbladder and biliary system: Suspected cholelithiasis. Nondilated biliary tree Pancreas: No ductal dilation Spleen: Nonenlarged Adrenals: No discrete nodules Kidneys: No calcified stone or contour deforming mass on the right. As seen previously, there is a le ft upper pole 6 x 5 x 6 mm stone within the calyx. There is a 13 x 10 x 11 mm stone that is within th e cortex in the mid region. These were present in 2019 CT. Another possible punctate stone is seen in the lower pole. No hydronephrosis. No contour deforming mass. Vessels and lymph nodes: No abdominal aortic aneurysm. No pathologic lymph nodes by size criteria. Bowel and peritoneum: No evidence of small bowel obstruction. No pathologic ascites. Body wall: Small fat-containing umbilical hernia. Possible other fat-containing upper abdominal ventr al hernias are also seen. Pelvis: Bladder is underdistended, no calcified stone. Reproductive organs are unremarkable on limited CT evaluation. Possible senescent calcifications and postsurgical changes. Bones: No acute or suspicious osseous finding. There are degenerative changes. IMPRESSION: On this limited noncontrast CT, there are multiple left renal calculi described above, also seen in 2 019. No contour deforming mass. In the setting of hematuria, consider further evaluation with CT IVP and cystoscopy for lower tract. Other findings above. Reviewed by: Lisandro Mcgregor MD on 01/09/2024 12:20 PM PDT Approved by: Lisandro Mcgregor MD on 01/09/2024 12:20 PM PDT Station ID: [id number]
== END 2024-01-09 08:20 | disposition home or self-care (01) ==
LOC: DI 08:19
PROVIDERS: ATTEND Family Medicine
DX: R31.9 Hematuria, unspecified (principal); R10.9 Unspecified abdominal pain; N20.0 Calculus of kidney; K42.9 Umbilical hernia without obstruction or gangrene; I25.10 Atherosclerotic heart disease of native coronary artery without angina pectoris; J98.4 Other disorders of lung

== ENCOUNTER 2024-01-19 08:00 | Outpatient (CLI) | payer OTHER | END 2024-01-19 23:59 | disposition home or self-care (01) | LOC: LAB 08:00 | PROVIDERS: ATTEND Urology | DX: R31.9 Hematuria, unspecified (principal) | CPT/HCPCS: 87086 ==

== ENCOUNTER 2024-02-13 16:48 | Outpatient (CLI) | payer OTHER ==
[2024-02-13] MEDS ORDERED: iohexoL-300 150 ML BOTTLE ONE (17:09)
[2024-02-13 17:21] LABS: CREATININE 1.3 mg/dL (0.6-1.3)
[2024-02-13] MEDS: iohexoL-300 150 ML BOTTLE IVP ONE (17:57)
--- NOTE | 2024-02-14 15:06 | CT Report ---
PROCEDURE: IVP INDICATIONS: HEMATURIA CONTRAST: 140ml [id number] TECHNIQUE: A [address] of the abdomen and pelvis was performed. Non-contrast and contrast images were recorded and evaluated at appropriate window settings. Images were recorded and evaluated at appropriate windo w settings. Reformats: coronal and sagittal. For radiation dose reduction, the following was used: au tomated exposure control, adjustment of mA and/or kV according to patient size. COMPARISON: None. FINDINGS: Image quality: Diagnostic. Lower chest: Unremarkable. Liver: No solid mass. Gallbladder: Cholelithiasis without wall thickening. Biliary tree: No intrahepatic or extrahepatic dilation, accounting for age. Spleen: No splenomegaly. Pancreas: No pancreatic ductal dilation. Adrenals: No adrenal nodule. Kidneys and ureters: Both kidneys are normal in size. Obstructing 8 x 6 mm stone in the left UVJ (ser ies 2, image 79), resulting in moderate hydroureter and hydronephrosis. Additional nonobstructing lef t-sided 5 to 6 mm calcification and bilateral punctate nonobstructing nephrolithiasis. No solid jonah s or complex cysts which require follow up. The opacified renal calyces and ureters appear normal, wi thout filling defect. Stomach, bowel and peritoneum: No bowel distension. No pathologic free fluid. Abdominal Lymph nodes: No central or retroperitoneal adenopathy. Vessels: Unremarkable. Patent portal vein. Reproductive organs: Unremarkable. Bladder: No abnormal wall thickening, accounting for underdistention. No calcified bladder stones. No filling defect within the opacified bladder. Pelvic Lymph nodes: Unremarkable. Bones: No aggressive osseous abnormality. Other: None. IMPRESSION: Obstructing 8 x 6 cm stone in the left UPJ, resulting in moderate hydronephrosis and hydroureter. No additional filling defects within the opacified renal collecting system or ureters. Bladder is inc ompletely distended with contrast. Reviewed by: Yossi Faustin MD on 02/14/2024 3:04 PM PDT Approved by: Yossi Faustin MD on 02/14/2024 3:04 PM PDT Station ID: [id number]
== END 2024-02-13 16:49 | disposition home or self-care (01) ==
LOC: LAB 16:48
PROVIDERS: ATTEND Urology
DX: R31.9 Hematuria, unspecified (principal); N13.2 Hydronephrosis with renal and ureteral calculous obstruction
CPT/HCPCS: 36415; 82565

== ENCOUNTER 2024-02-28 15:51 | Outpatient (CLI) | payer OTHER | END 2024-02-28 15:52 | disposition home or self-care (01) | LOC: LAB 15:51 | PROVIDERS: ATTEND Urology | DX: N20.9 Urinary calculus, unspecified (principal) | CPT/HCPCS: 82365 ==